=== PATIENT | female | born 1970 | race Caucasian/White ===

== ENCOUNTER 2016-11-29 05:15 | Emergency (ER) | payer MEDICAID ==
--- NOTE | 2016-11-29 05:37 | Emergency Department Record ---
History of Present Illness - General Chief complaint: Lower Extremity Pain Stated complaint: LEFT LEG PAIN Time Seen by Provider: 11/29/16 05:31 Source: Patient Mode of Arrival: Ambulatory Limitations: No limitations - History of Present Illness Initial comments: 46 yo female presents to ED with a CC of left hip pain that began yesterday. Patient denies injury, denies fevers/chills. Patient reports that she has not taken anything for her pain symptoms. Patient does report sciatica previously, reports this pain feels different to her as it does not start in her low back, todays's symptoms are located more in the hip joint itself. MD Complaint: Joint pain Onset/Timin -: Days(s) Location: Left, Foot, Lower Leg History of Same: No Severity scale (1-10): 10 Quality: Dull Consistency: Constant, Getting worse Improves with: Nothing Worsens with: Walking, Weight bearing - Related Data Home Medications Medication Instructions Recorded Confirmed Last Taken Aspirin [Aspirin EC] 81 mg PO DAILY 10/01/14 11/29/16 01/08/16 81 MG Previous Rx's Medication Instructions Recorded Hydrocodone/Acetaminophen [Belmont 1 tab PO Q6H PRN #10 tab 11/29/16 5mg/325mg] Allergies Allergy/AdvReac Type Severity Reaction Status Date / Time ibuprofen Allergy RAPID Unverified 07/28/16 14:09 HEART RATE morphine Allergy HIVES Verified 11/29/16 05:20 Travel Screening - Travel/Exposure Within Last 30 Days Have you traveled within the last 30 days?: No Review of Systems Constitutional: Denies: Chills, Fever, Malaise, Night sweats Eyes: Denies: Eye discharge, Eye pain ENT: Denies: Congestion, Ear pain, Epistaxis Respiratory: Denies: Cough, Dyspnea Cardiovascular: Denies: Chest pain, Dyspnea on exertion Endocrine: Denies: Fatigue, Heat or cold intolerance Gastrointestinal: Denies: Abdominal pain, Nausea, Vomiting Genitourinary: Denies: Incontinence, Retention Musculoskeletal: Reports: Arthralgia. Denies: Back pain, Gout, Joint swelling Skin: Denies: Bruising, Change in color Neurological: Denies: Abnormal gait, Confusion, Headache, Seizure Psychiatric: Denies: Anxiety Hematological/Lymphatic: Denies: Anemia, Blood Clots Past Medical History - SOCIAL HISTORY Smoking Status: Current every day smoker Alcohol Use: None Drug Use: None - RESPIRATORY Hx Respiratory Disorders: Yes Hx Asthma: Yes - CARDIOVASCULAR Hx Cardio Disorders: No Hx Hypertension: Yes - NEURO Hx Neuro Disorders: No - GI Hx GI Disorders: No - Hx Genitourinary Disorders: No - ENDOCRINE Hx Endocrine Disorders: No - MUSCULOSKELETAL Hx Musculoskeletal Disorders: Yes - PSYCH Hx Psych Problems: Yes Hx Depression: Yes - HEMATOLOGY/ONCOLOGY Hx Hematology/Oncology Disorders: No Family Medical History Any Significant Family History?: No Physical Exam - General General Appearance: Alert, Oriented x3, Cooperative, No acute distress Limitations: No limitations - Head Head exam: Atraumatic, Normocephalic, Normal inspection Head exam detail: negative: Abrasion, Contusion, Montano's sign, General tenderness, Hematoma, Laceration - Eye Eye exam: Normal appearance. negative: Conjunctival injection, Periorbital swelling, Periorbital tenderness, Scleral icterus - ENT Ear exam: negative: Auricular hematoma, Auricular trauma Nasal Exam: negative: Active bleeding, Discharge, Dried blood, Foreign body Mouth exam: negative: Drooling, Laceration, Muffled voice, Tongue elevation - Neck Neck exam: Normal inspection. negative: Meningismus, Tenderness - Respiratory Respiratory exam: Normal lung sounds bilaterally. negative: Rales, Respiratory distress, Rhonchi, Stridor - Cardiovascular Cardiovascular Exam: Regular rate, Normal rhythm, Normal heart sounds - GI/Abdominal GI/Abdominal exam: Soft. negative: Rebound, Rigid, Tenderness - Rectal Rectal exam: Deferred - exam: Deferred - Extremities Extremities exam: Tenderness, Other (TTP along left hip on examination). negative: Calf tenderness, Pedal edema - Back Back exam: Denies: CVA tenderness (R), CVA tenderness (L) - Neurological Neurological exam: Alert, Normal gait, Oriented X3 - Psychiatric Psychiatric exam: Normal affect, Normal mood - Skin Skin exam: Normal color. negative: Abrasion Type of lesion: negative: abrasion Course Vital Signs 11/29/16 05:23 Temperature 97.4 F L Pulse Rate [ 98 H Pulse Ox Probe] Respiratory 20 Rate Blood Pressure 157/112 [Left Arm] Pulse Ox 96 - Reevaluation(s) Reevaluation #1: 11/29/16 05:36 Patient seen and examined, denies the need for analgesia on examination, wants to "find out what's wrong with her hip". Reevaluation #2: 11/29/16 05:53 Left hip: No acute process identified 11/29/16 06:58 Reevaluation #3: 11/29/16 06:48 Labs reviewed and are grossly unremarkable for an acute process, no evidence for a septic hip. Patient reports that she is feeling much better, and the patient appears stable for discharge at this time. Medical Decision Making - Lab Data Result diagrams: 11/29/16 06:00 11/29/16 06:00 Disposition Disposition: Discharge Clinical Impression: Hip pain, left Disposition: Home, Self-Care Condition: (2) Stable Instructions: Arthralgia (ED) Additional Instructions: return to ED if your symptoms worsen or if you have any concerns. Belmont and Naprosyn as directed Follow-up with your family doctor in 3-5 days as directed. Prescriptions: Hydrocodone/Acetaminophen [[place]mont 5mg/325mg] 1 tab PO Q6H PRN #10 tab PRN Reason: Pain - General Forms: Patient Portal Access Time of Disposition: 06:52
[2016-11-29 06:06] LABS: BASO % 0.2 % (0-6); EOS % 1.7 % (0-6); GRAN % 75.7 % (47-80); HEMATOCRIT 39.6 % (35.0-47.0); HEMOGLOBIN 14.1 gm/dl (11.6-16.0); LYMPH % 16.8 % (16-45); MEAN CELL VOLUME 90.4 fl (81-97); MEAN CORPUSCULAR HEMOGLOBIN 32.2 pg (27-33); MEAN CORPUSCULAR HGB CONC 35.6 g/dl (32-36); MEAN PLATELET VOLUME 10.1 fl (7.4-10.4); MONO % 5.6 % (0-9); PLATELET COUNT 222 K/uL (130-400); RED BLOOD COUNT 4.38 M/uL (3.80-5.40); WHITE BLOOD COUNT W/O DIFF 8.3 K/uL (4.2-12.2)
[2016-11-29] MEDS ORDERED: HYDROCODONE/APAP 5/325MG TABLET PO ONE (06:06)
[2016-11-29 06:21] LABS: ALB/GLOB RATIO 1.3 (1.1-1.8); ALKALINE PHOSPHATASE 109 U/L (38-126); ALT/SGPT 26 U/L (9-52); ANION GAP 6.9 (7-16); AST/SGOT 16 U/L (14-36); BILIRUBIN,TOTAL 0.54 mg/dL (0.2-1.3); BLOOD UREA NITROGEN 14 mg/dL (7-17); C-REACTIVE PROTEIN 1.2 mg/dL (0.0-0.9); CARBON DIOXIDE 24.1 mmol/L (22-30); CREATININE 0.7 mg/dL (0.52-1.04); EST GLOMERULAR FILTRATION RATE > 60 ml/min; GLUCOSE,RANDOM 193 mg/dL (70-110); TOTAL PROTEIN 7.2 gm/dL (6.3-8.2)
[2016-11-29 06:43] LABS: ERYTHROCYTE SEDIMENTATION RATE 13 mm/hr (0-20)
--- NOTE | 2016-12-03 08:26 | RADIOLOGY REPORT ---
EXAM: LEFT HIP HISTORY: LEFT HIP PAIN FOR TWO DAYS. NO KNOWN INJURY. TECHNIQUE: An AP view of the pelvis is obtained as well as AP and frog leg lateral views of the left hip. Comparison: Radiographic examination of the lumbar spine dated 10/20/15. Encounter: Initial. FINDINGS: There is normal bone mineralization. No acute fracture, dislocation , or destructive bone lesion is seen. The articular relations are maintained. No focal soft tissue abnormality identified. IMPRESSION: NORMAL LEFT HIP EXAMINATION. JOB NUMBER: [id number] [facility]
== END 2016-11-29 07:02 | disposition home or self-care (01) ==
LOC: ER 05:15
DX: M25.552 Pain in left hip (principal); I10 Essential (primary) hypertension; F17.210 Nicotine dependence, cigarettes, uncomplicated
CPT/HCPCS: 80053; 85025; 85651; 86140; 99283; 99284